=== PATIENT | female | born 1970 | race Caucasian/White ===

== ENCOUNTER 2016-12-12 15:26 | Emergency (ER) | payer BC ==
[~2016-12-12] VITALS: Ht 175.3 cm; Wt 87.3 kg
[~2016-12-12 15:26] MED LIST: Motrin PO; PREFERA-OB P1 TABLET PO
[2016-12-12 16:00] LABS: HEMATOCRIT 34.8 % (36.0-46.0); MCH 28.4 PG (29.0-34.0); MCHC 33.3 G/DL (30.0-36.0); MCV 85.1 FL (83-99); MEAN PLAT.VOLUME 9.9 uM^3 (9.5-12.4); PLATELET COUNT 263 K/uL (156-360); RBC DIS.WIDTH-CV 13.5 % (11.8-14.6); RBC DIS.WIDTH-SD 41.6 % (39-53); RED BLOOD COUNT 4.09 M/uL (3.80-5.20); WHITE BLOOD COUNT 6.3 K/uL (4.1-10.2)
[2016-12-12 16:08] LABS: CHLORIDE 106 mEq/L (99-109); POTASSIUM 3.5 mEq/L (3.7-5.4); SODIUM 137 mEq/L (136-147)
[2016-12-12 16:10] LABS: GLUCOSE 103 mg/dL (70-99)
[2016-12-12 16:12] LABS: ANION GAP 9 MEQ/L (2-14)
[2016-12-12 16:14] LABS: ALKALINE PHOSPHATASE 49 IU/L (3-129); GFR ESTIMATE (CALCULATED) > 59 mL/min/
[2016-12-12 16:15] LABS: UREA NITROGEN (BUN) 13 mg/dL (9-23)
[2016-12-12 16:24] LABS: QUANTITATIVE HCG < 4.0 MIU/ML
[2016-12-12 16:54] LABS: ADD MIUA? NO; BILIRUBIN NEGATIVE; BLOOD NEGATIVE; COLOR YELLOW ((YELLOW)); GLUCOSE (STRIP) NEGATIVE; KETONES NEGATIVE; LEUKOCYTES NEGATIVE; NITRITE NEGATIVE; PH, URINE 6.5 (5-8); PROTEIN (STRIP) NEGATIVE; SPECIFIC GRAVITY 1.012 (1.000-1.030); UCUL ADDED? NO; UROBILINOGEN 0.2 MG/DL (0.2-1.0)
[2016-12-12] MEDS ORDERED: MOTRIN800 MG PO (18:25)
[2016-12-12 18:39] VITALS: BP 130/69
== END 2016-12-12 18:40 | disposition home or self-care (01) ==
LOC: EME 15:26
DX: R10.2 Pelvic and perineal pain (principal); R10.32 Left lower quadrant pain; Z87.442 Personal history of urinary calculi
CPT/HCPCS: 76856; 80053; 81003; 84702; 85027; 99281; 99284